=== PATIENT | female | born 1930 | race Caucasian/White ===

== ENCOUNTER → 2018-09-14 | Outpatient (CLI) | payer OTHER ==
[~2018-09-14] MED LIST: ATENOLOL25 MG PO; CALCIUM 600 +1 EAC8 PO; CALCIUM PO; DAILY VITAMIN1 EAC3 PO; FISH OIL PO; HYDROCHLOROTHIA25 MG PO; HYDROCODON-ACE1 EA11 PO; LEVOTHYROXINE PO; NEXIUM40 MG PO; NORCO 7.5-3251 EACH PO; PRESERVISION A1 EAC1 PO; XARELTO15 MG PO
--- NOTE | 2018-09-14 14:23 | Diagnostic Imaging Report ---
Upper GI with air-contrast dated 09/14/2018. History: <Reflux symptoms>. Discussion: The patient was given air crystals, thick barium and thin barium to drink in upright and prone positions. Multiple images of the esophagus, stomach and duodenum were obtained. The esophagus has normal motility and anatomy without evidence of extrinsic or intrinsic abnormality. 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 A small sliding hiatal hernia is present without evidence of esophagitis. There is active gastroesophageal reflux during the examination. Diffusely thickened gastric folds are noted. The duodenal bulb and c-loop are normal in normal appearance. There is no evidence of a gastric or duodenal ulcer. Visualized portions of the proximal small bowel appear unremarkable. Fluoroscopy time: 1.3 minutes Total dose: 21.35 mGy IMPRESSION: 1. Normal esophageal motility with a small cervical esophageal Zenker's diverticulum. 2. There is active gastroesophageal reflux and a small hiatal hernia. 3. Thickened gastric folds are nonspecific. Signed by: Dr. Miguel Pruitt DO on 09/14/2018 2:20 PM
== END ==
LOC: DX 12:08
PROVIDERS: ATTEND Internal Medicine Gastroenterology
DX: R13.14 Dysphagia, pharyngoesophageal phase (principal)
CPT/HCPCS: 74246